=== PATIENT | female | born 1930 | race Caucasian/White ===

== ENCOUNTER 2016-12-08 09:33 | Inpatient (IN) | payer MEDICARE, OTHER ==
[~2016-12-08] VITALS: Ht 154.9 cm; Wt 44.0 kg
--- NOTE | ~2016-12-08 | CON ---
PATIENT'S NAME: PALMER MAURICE [facility] AGE: 86 Y [address] ROOM: [id number] [place], [place] [address] [facility] ADMIT DATE: 12/08/2016 Consultation DISCHARGE DATE: FAMILY PHYSICIAN: MIKE ARECHIGA MD ATTENDING PHYSICIAN: Kristian Joiner DATE OF CONSULTATION: 12/09/2016 REFERRING PHYSICIAN: TATA NAVARRO MD REFERRING PHYSICIAN: Romeo Campa MD REASON FOR CONSULTATION: ESRD, management of hemodialysis, and acute respiratory failure. CHIEF COMPLAINT: Shortness of breath. HISTORY OF PRESENT ILLNESS: An 86-year-old female with history of hypertension; coronary artery disease; end-stage renal disease, on hemodialysis; atrial fibrillation; inflammatory bowel disease; and pulmonary hypertension, admitted for right arm Acuseal graft placement. After the graft placement, the patient's oxygen saturation was low although the surgery went quite uneventfully. The patient was placed on supplemental oxygen at least 1 L/minute, and Nephrology consultation has been called for possible pulmonary vascular congestion in a patient with ESRD. We saw the patient, during the hemodialysis session. The patient generally goes to [facility] on Monday, Monday, and Monday schedule for routine hemodialysis. The patient is noted to be on her dry weight. However, she is needing about 1 to 2 L of oxygen to maintain a saturation in the low 90s. We try to challenge her during dialysis. She did tolerate it well other than maintaining a marginal blood pressure in the 90s to 100s over 40s to 50s during that time, however, no significant hypotensive episodes other than that. At the end of the dialysis session, the patient was off oxygen. Plan to continue dialysis as per Monday, Monday, and Monday schedule. Pulmonary has seen the patient. She denied any cough, any sputum production, or wheezing. Denied any history of asthma/COPD or pulmonary fibrosis. Never been on home oxygen in the past. No complaint of chest pain, palpitation, or abdominal pain. No fever, chills, or rigor. PAST MEDICAL HISTORY: 1. Hypertension. 2. Coronary artery disease. 3. End-stage renal disease, on hemodialysis. 4. Anemia of chronic disease. 5. Pulmonary hypertension. 6. Atrial fibrillation. 7. Inflammatory bowel disease. ALLERGIES: STATIN. MEDICATIONS: As per the chart.PATIENT'S NAME: PALMER MAURICE [facility] AGE: 86 Y [address] ROOM: [id number] [place], [place] [address] [facility] ADMIT DATE: 12/08/2016 Consultation DISCHARGE DATE: FAMILY PHYSICIAN: MIKE ARECHIGA MD ATTENDING PHYSICIAN: Kristian Joiner SOCIAL HISTORY: Denies alcohol, tobacco, or illicit drug use. PAST SURGICAL HISTORY: 1. Bilateral cataract surgeries. 2. Kidney transplantation. 3. Left total knee arthroplasty. 4. Placement of Acuseal graft on the right upper arm. FAMILY HISTORY: Mother had history of heart disease. Father in a motor vehicle accident. A sister of kidney disease. Brother had diabetes and heart disease. REVIEW OF SYSTEMS: GENERAL: No fever. No chills or rigor. HEENT: No sore throat. No sinus congestion. CVS: No chest pain. No palpitation or orthopnea. No leg swelling. No exertional shortness of breath. RESPIRATORY: Mild shortness of breath requiring 1 to 2 L of oxygen at rest to maintain saturation in the low 90s. No cough. No wheezing. No sputum production. GENITOURINARY: No pain with urination. No increased frequency. No nocturia. GASTROINTESTINAL: No abdominal pain. No abdominal distention. No nausea or vomiting. NEUROLOGIC: No weakness. No seizures. SKIN: No rash. No itching. ALLERGIES: No seasonal allergy. No hayfever. ENDOCRINE: No heat intolerance. No cold intolerance. PSYCHIATRIC: No sadness. No crying spells. No history of panic attack. PHYSICAL EXAMINATION: VITAL SIGNS: Blood pressure 90s to 100s over 40s to 50s, oxygen saturation 92 to 94% on 1 L of oxygen, temperature 98.2, heart rate 70, and respiratory rate 22. GENERAL: Not in apparent distress. HEAD: Moist mucous membranes. Bilateral PERRLA, EOMI. NECK: No JVD, thyromegaly or lymphadenopathy. CVS: S1 and S2 plus, irregular rate and rhythm. No murmur, rub, gallop. CHEST: Bilateral air entry equal. Faint bilateral bibasilar crackles. No significant wheeze. No rales. ABDOMEN: Soft, nontender, nondistended. Bowel sounds present. EXTREMITIES: No cyanosis, clubbing, jaundice. No dependent edema. MUSCULOSKELETAL: No limitation of range of motion. SKIN: No pallor, cyanosis, icterus. BUSINESS TEST ANALYST: Alert and oriented x3. No gross findings. LABORATORY DATA AND IMAGING STUDIES: Laboratory Evaluation: WBC 3.4, hemoglobin 11.7, hematocrit 38.2, and platelets 75,000. Chemistry; sodium 141, potassium 4.6, chloride 106, bicarbonate 25, BUN 23, creatinine 3.3, albumin 3, and total protein 6.4. LFTs are within normal limits except mildly elevated alkaline phosphatase at 140. Echocardiogram from last year; severe pulmonary hypertension with RV systolic pressure in the 60s. PATIENT'S NAME: PALMER MAURICE [facility] AGE: 86 Y [address] ROOM: [id number] [place] [id number] LOCATION: [facility] ADMIT DATE: 12/08/2016 Consultation DISCHARGE DATE: FAMILY PHYSICIAN: MIKE ARECHIGA MD ATTENDING PHYSICIAN: Kristian Joiner ASSESSMENT AND PLAN: 1. End-stage renal disease, status post failed transplant, currently on hemodialysis in center at [facility] as per Monday, Monday, and Monday schedule. We will continue dialysis as per the same schedule. The patient had a recent Acuseal graft placement on the right upper arm. We used that graft during our hemodialysis without any complications. 2. The patient has been seen and examined on dialysis, tolerating dialysis well. The patient is currently at dry weight, however, the patient has mild bibasilar crackles with history of pulmonary hypertension. We will try to challenge her to dry her out a little bit, however, aggressive ultrafiltration will be limited by marginal blood pressure. 3. Acute hypoxic respiratory failure likely to general anesthesia with possible superimposed pulmonary edema in a patient with significant pulmonary hypertension. However, the patient is at dry weight. We will try to dry her out further with some fluid challenge during dialysis and see whether we can take her off the oxygen. 4. Status post right arm Acuseal graft placement for end-stage renal disease. The graft is functioning well without any complication. We could run through the graft. 5. Pulmonary hypertension. Severe secondary to possible end-stage renal disease. Pulmonary is on board and they will follow. 6. Atrial fibrillation, although currently still in atrial fibrillation, but the rate is controlled. Thank you for allowing me to participate in this patient's care. We will closely monitor the patient's progress along with you. MD DAVIDA ARMSTRONG/akbar /[id number] d: 12/10/16 1346 t: 12/15/16 1144, CONSULTATION REPORT
--- NOTE | ~2016-12-08 | OR ---
PATIENT'S NAME: PALMER MAURICE [facility] AGE: 86 Y [address] ROOM: [address] [address] LOCATION: GPCU ADMIT DATE: 12/08/2016 OR/Procedure Report DISCHARGE DATE: FAMILY PHYSICIAN: MIKE ARECHIGA MD ATTENDING PHYSICIAN: ROMEO CAMPA SURGEON: Romeo Campa MD HONEY PROCESSOR: DATE OF PROCEDURE: 12/08/2016 PREOPERATIVE DIAGNOSIS: End-stage renal disease. POSTOPERATIVE DIAGNOSIS: End-stage renal disease. PROCEDURE: Right arm Acuseal brachioaxillary graft. INSULATION PACKER: JOVANNY Zamudio. ANESTHESIA: General. ESTIMATED BLOOD LOSS: 50 mL. OPERATIVE FINDINGS: Good thrill and bruit in the axillary vein. COMPLICATIONS: The patient had severe skin tears of the forearm during prepping of the case as her skin was extremely fragile. DESCRIPTION OF PROCEDURE: The patient was brought into operating room, placed supine on the operative table. Prepped and draped in a sterile manner. Preoperative time-out was performed. The patient was placed under general anesthesia. The patient received preoperative antibiotics. We made a standard incision 2 cm proximal to the antecubital fossa, dissected down the fascia, incised the fascia in a longitudinal manner. Dissected out the brachial artery in a 360-degree fashion. We then did the same thing for the axillary vein. We then tunneled the Acuseal 4.7 graft from the axillary incision to the brachial incision. We then gave 5000 units of heparin. We then made an arteriotomy, size of 4 mm in the artery, did a standard 6-0 Prolene anastomosis and did the same thing with the venotomy in the axillary incision, once again with 6-0 Prolene. We then removed the clamps. There was excellent flow in the graft. There was a strong bruit signal in the axillary vein. We reversed the heparin with use of protamine. Thrombin was used locally as well as Surgicel. Deep layers were closed with Vicryl, skin was closed with interrupted nylon sutures. During prepping, as I said before, she developed skin tears of the forearm, 2 large skin tears, 5-cm each limb. These were repaired using interrupted nylon and her skin would tear, however, even with the nylons, but we reapproximated the skin as best as we can. We PATIENT'S NAME: PALMER MAURICE [facility] AGE: 86 Y [address] ROOM: [place] [address] LOCATION: GPCU ADMIT DATE: 12/08/2016 OR/Procedure Report DISCHARGE DATE: FAMILY PHYSICIAN: MIKE ARECHIGA MD ATTENDING PHYSICIAN: ROMEO CAMPA will start her on antibiotics for a week to make sure to these incisions do not get infected. She was transferred to recovery room and allowed to go home later that day. MD ALEKSANDR THOMAS/akbar /[id number] d: 12/08/162100 t: 12/09/16 1011, OPERATIVE SUMMARY
--- NOTE | ~2016-12-08 | CON ---
PATIENT'S NAME: PALMER MAURICE [facility] AGE: 86 Y [address] ROOM: [address] [address] LOCATION: GPCU ADMIT DATE: 12/08/2016 Consultation DISCHARGE DATE: FAMILY PHYSICIAN: MIKE ARECHIGA MD ATTENDING PHYSICIAN: ROMEO CAMPA DATE OF CONSULTATION: 12/08/2016 REFERRING PHYSICIAN: Romeo Campa MD REASON FOR CONSULTATION: Evaluation and management of a patient with acute respiratory failure. CHIEF COMPLAINT: Shortness of breath after AV graft placement. HISTORY OF PRESENT ILLNESS: This is an 86-year-old female with multiple comorbidities including end-stage renal disease, atrial fibrillation, pulmonary hypertension, and coronary artery disease who had a right arm Accuseal graft placed earlier today by her vascular surgeon, Dr. Campa. The surgery went uneventfully, but it was noted that after surgery the patient's oxygen saturations were low. For this reason, she was started on supplemental oxygen and has been kept on at least 1 L/minute as her oxygen saturations were in the mid to low 80s while on room air. Although the patient was supposed to go home after surgery, it was decided that she will be kept for observation overnight. At the same time, I was called by the vascular surgery team to come and evaluate the patient for her acute respiratory failure with hypoxia. During the time of my examination, the patient was drowsy, but still arousable with verbal stimuli. She had endorsed some shortness of breath at the time of my examination, but otherwise no cough. No sputum production. No wheezing. She denies ever being diagnosed with asthma, COPD, or pulmonary fibrosis. She was never placed on supplemental oxygen for long periods of time. Her dialysis sessions are on Monday, Monday, and Monday, so her next dialysis session is scheduled for tomorrow. She also denies chest pain, palpitations, abdominal pain, lower extremity swelling, fevers, or chills. PAST MEDICAL HISTORY: 1. Coronary artery disease. 2. Anemia of chronic disease. 3. Pulmonary hypertension. 4. End-stage renal disease, on hemodialysis. 5. Atrial fibrillation. 6. Inflammatory bowel disease. 7. Systemic hypertension. PATIENT'S NAME: [facility] AGE: 86 Y [address] ROOM: [facility] [place], [place] [address] [facility] ADMIT DATE: 12/08/2016 Consultation DISCHARGE DATE: FAMILY PHYSICIAN: MIKE ARECHIGA MD ATTENDING PHYSICIAN: ROMEO CAMPA ALLERGIES: STATINS. MEDICATIONS: At home are reviewed, as per chart. SOCIAL HISTORY: There is no history of alcohol, tobacco, or illicit drug abuse. FAMILY HISTORY: Her mother had heart disease. Her father was killed in a motor vehicle accident. A sister of kidney disease, and a brother had diabetes and heart disease. PAST SURGICAL HISTORY: 1. Bilateral cataract surgeries. 2. Kidney transplantation. 3. Left total knee arthroplasty. REVIEW OF SYSTEMS: Pertinent positives and negatives as per History of Present Illness. The patient also has chronic complaints of decreased vision, multiple joint pains, and dyspnea on exertion. Otherwise, a 12-point review of systems was performed and was negative. PHYSICAL EXAMINATION: VITAL SIGNS: Temperature is 98.2, heart rate is 70, respiratory rate is 22, blood pressure is 131/102, and oxygen saturation 93% on 1 L/minute oxygen. Weight 44.1 kg, height 5 feet 1 inches, and BMI is 18.3. GENERAL: She is an elderly, female; sitting up in bed; in no acute distress. Drowsy, but arousable. Speaking in short sentences. HEENT: Atraumatic head. Changes consistent with cataract surgery noted in both eyes. Anicteric sclerae. Moist oral mucosa. No pharyngeal erythema. No oral thrush. NECK: Supple. No JVD. No LAD. Trachea midline. No thyromegaly. RESPIRATORY: She has bilateral basilar crackles. No wheezing. CARDIOVASCULAR: Irregularly irregular rhythm and rate with a 3/6 systolic murmur heard along the left lower sternal border. ABDOMEN: Soft, nontender, and nondistended. Bowel sounds are present. EXTREMITIES: She has minimal bilateral lower extremity edema. No cyanosis, and no clubbing. NEUROLOGICAL: Drowsy, but arousable. Moving all extremities. LABORATORY AND DIAGNOSTIC DATA: Prior to surgery, her WBC was 3.4, hemoglobin of 11.7, hematocrit of 38.2, and platelets of 75. Sodium of 141, potassium of 4.6, chloride of 106, total PATIENT'S NAME: PALMER MAURICE [facility] AGE: 86 Y [address] ROOM: [facility] [place], [place] [address] LOCATION: GPCU ADMIT DATE: 12/08/2016 Consultation DISCHARGE DATE: FAMILY PHYSICIAN: MIKE ARECHIGA MD ATTENDING PHYSICIAN: ROMEO CAMPA serum bicarbonate of 25, BUN of 23, and creatinine of 3.3. Albumin of 3. Total protein of 6.4. LFTs were within normal limits except a mildly elevated alkaline phosphatase of 140. I also personally reviewed the medical records from Dr. Campa's office. Cardiac echo from last year revealed severe pulmonary hypertension with estimated RVSP in the 60s. ASSESSMENT: 1. Acute hypoxic respiratory failure. This is most likely due to general anesthesia with possibly superimposed pulmonary edema in a patient with pulmonary hypertension. I am concerned about hypercapnia because of hypoventilation after general anesthesia. 2. Status post right arm Accuseal graft for end-stage renal disease. 3. Pulmonary hypertension, this is severe and most likely secondary to end- stage renal disease. 4. End-stage renal disease. She is on hemodialysis. PLAN: 1. I will check an ABG and a chest x-ray. 2. We will titrate FiO2 as tolerated to keep oxygen saturations above 90%. In the meantime, if she has increased shortness of breath, work of breathing, or high oxygen requirements, then she may benefit from BiPAP as needed. 3. I do not see a need for hemodialysis emergently, but she will most likely need it tomorrow to help with the pulmonary edema due to fluid overload. She will be evaluated by the nephrology team. The current assessment and plan was discussed with the patient, the patient's family, and vascular surgery team. I would like to thank you, Dr. Campa, for giving me the opportunity to participate in this patient's care. MD IMTIAZ LIAO/akbar /[id number] d: 12/09/16 1137 t: 03/10/17 1413, CONSULTATION REPORT
--- NOTE | ~2016-12-08 | DS ---
PATIENT'S NAME: PALMER MAURICE [facility] AGE: 86 Y [address] ROOM: [address] [address] LOCATION: GPCU ADMIT DATE: 12/10/2016 Discharge Summary DISCHARGE DATE: 12/20/2016 FAMILY PHYSICIAN: Janiya Thomas MD ATTENDING PHYSICIAN: Fiorella Joiner PRIMARY DIAGNOSES: 1. Acute hypoxic respiratory failure. 2. Acute on chronic cor pulmonale. 3. Severe pulmonary hypertension. 4. Dysphagia. 5. Hypoglycemia. 6. Severe protein calorie malnutrition. 7. End-stage renal disease, on hemodialysis. 8. Status post AV graft placement by Dr. Campa on 12/10/2016. 9. Essential hypertension. 10. Coronary artery disease. 11. Paroxysmal atrial fibrillation, not on long-term anticoagulation. 12. Severe aortic stenosis. OPERATIONS AND PROCEDURES: Flexible sigmoidoscopy was performed on 12/14/[address] Huber. Colonoscopy with polypectomy and clip placement was performed on 12/15/[address] Huber. Echocardiogram was performed 12/13/2016 demonstrating an ejection fraction of 70%-75%, moderate diastolic dysfunction, severe aortic stenosis, and an elevated RVSP at 95 mmHg. Thoracentesis was performed on 12/20/2016 with resultant 700 mL of fluid drained. HISTORY OF PRESENTING ILLNESS/REASON FOR ADMISSION: Please see the original H and P dictated on 12/10/2016. HOSPITAL COURSE: The patient was admitted to the hospital as noted above following AV graft placement by Dr. Campa with postoperative hypoxia and hypercapnia. Pulmonology had been consulted and the hospitalist service was consulted to assist in medical management and further evaluation. Her clinical progress was slow. She was felt to have fluid overload. She was taken for hemodialysis and ultrafiltration was performed carefully. Oxygen requirements persisted, however. Eventually Cardiology was consulted. An echocardiogram was performed. This showed severe aortic stenosis. She also had significant pulmonary hypertension with an RVSP noted at 95 mmHg. It was suggested that ultimately she might benefit from balloon aortic valvuloplasty and transcatheter aortic valve replacement, and this was discussed with the patient. It is felt that she would be relatively high risk given her frail medical status. PATIENT'S NAME: PALMER MAURICE [facility] AGE: 86 Y [address] ROOM: [facility] [place], [place] [address] LOCATION: GPCU ADMIT DATE: 12/10/2016 Discharge Summary DISCHARGE DATE: 12/20/2016 FAMILY PHYSICIAN: Janiya Thomas MD ATTENDING PHYSICIAN: Fiorella Joiner Eventually, oxygen requirements improved. She did undergo thoracentesis for bilateral pleural effusions. By 12/20/2016, her oxygen demands were essentially nil. The patient did have significant anorexia and dysphagia. She is evaluated by Speech Therapy. There was no evidence for any aspiration. SSRI therapy with mirtazapine was added and her oral intake gradually improved. She had severe protein calorie malnutrition. Because of her frail status, physical therapy and occupational therapy were provided as well. It is felt that she would be high risk for discharge to home and plans for half-way care were made. Unfortunately, we could not find any placement for her easily. Eventually, her son requested to just take her home where he would care for her and take her to her dialysis appointments. By 12/20/2016, it was felt that this would be reasonable course and it was recommended that she maintain close clinical followup with her primary care provider as well as outpatient followup with Nephrology. DISCHARGE INSTRUCTIONS: DIET: Renal prudent as tolerated. ACTIVITY: As tolerated. MEDICATIONS: 1. Vitamin C 500 mg p.o. three times a week. 2. PhosLo 667 p.o. t.i.d. 3. Cinacalcet 30 mg p.o. at bedtime. 4. Digoxin 125 mcg p.o. twice a week. 5. Colace 100 mg p.o. b.i.d. 6. Levothyroxine 75 mcg p.o. daily. 7. Midodrine 10 mg p.o. every Monday, Monday, Monday. 8. Mirtazapine 7.5 mg p.o. at bedtime. 9. Fish oil daily. 10. Protonix 40 mg p.o. q.a.m. 11. Vitamin B6 25 mg p.o. q.a.m. 12. Garlic 400 mg p.o. at bedtime. FOLLOWUP: She will follow up with her primary care provider, Dr. Thomas in 5-7 days in [place]. She will follow up with Nephrology for hemodialysis at the Dialysis Unit in [place] tomorrow, 12/22/2015. CONDITION ON DISCHARGE: Fair. TOTAL TIME SPENT ON DISCHARGE PROCESS: 45 minutes. PATIENT'S NAME: PALMER MAURICE [facility] AGE: 86 Y [address] ROOM: [address] [address] LOCATION: GPCU ADMIT DATE: 12/10/2016 Discharge Summary DISCHARGE DATE: 12/20/2016 FAMILY PHYSICIAN: Janiya Thomas MD ATTENDING PHYSICIAN: Fiorella Joiner FIORELLA JOINER MD AJMarco/modl /[id number] d: 12/21/163 t: 12/22/16 1532, DISCHARGE SUMMARY
--- NOTE | ~2016-12-08 | CON ---
PATIENT'S NAME: PALMER HERNANDEZ [facility] AGE: 86 Y [address] ROOM: [place] [address] LOCATION: GPCU ADMIT DATE: 12/10/2016 Consultation DISCHARGE DATE: FAMILY PHYSICIAN: MIKE ARECHIGA MD ATTENDING PHYSICIAN: Kristian Joiner REFERRING PHYSICIAN: TATA NAVARRO MD REASON FOR CONSULT: Rectal bleed. HISTORY OF PRESENT ILLNESS: Palmer Hernandez is an 86-year-old female with multiple comorbidities. 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 She also has underlying history of hypertension, coronary artery disease, diffuse vascular disease, atrial fibrillation, and questionable history of inflammatory bowel disease. She states she has been having rectal bleeding off and on for several months and has undergone evaluation in [place]. I do not have those records. Sometimes, she states there were some polyps and ongoing bleeding was ascribed to hemorrhoids. We are asked to see her in this regard. Her hemoglobin is relatively stable around 9-10, but complains of ongoing rectal bleeding during this hospitalization. PAST MEDICAL HISTORY: Kidney transplant, AV graft surgery. MEDICATIONS: Multiple as noted on NOV. ALLERGIES: ARE STATED TO STATINS. FAMILY HISTORY: Negative for inflammatory bowel disease. PHYSICAL EXAMINATION: GENERAL: Elderly, emaciated, thin-looking female, on oxygen. She is otherwise awake, alert, and oriented. HEENT: Normocephalic and atraumatic. Nonicteric sclerae. CHEST: Clear to auscultation. HEART: S1, S2 normal. ABDOMEN: Soft and nondistended without palpable masses. EXTREMITIES: No edema. SKIN: Evidence of fistula in the left arm. NEUROLOGIC: Awake, alert, and appropriate without any focal deficits. PATIENT'S NAME: PALMER HERNANDEZ [facility] AGE: 86 Y [address] ROOM: [address] [address] LOCATION: GPCU ADMIT DATE: 12/10/2016 Consultation DISCHARGE DATE: FAMILY PHYSICIAN: MIKE ARECHIGA MD ATTENDING PHYSICIAN: Kristian Joiner LABORATORY DATA: Labs are reviewed showing hemoglobin of 10.2 which is stable since after admission, white cell count 4.6, platelets 75,000, and MCV of 114,000. ASSESSMENT AND PLAN: An 86-year-old female with multiple comorbidities and complaints of bright red blood per rectum, etiology unclear. Apparently some kind of evaluation has been undertaken in her hometown, but she is unaware of that. She is agreeable to a flexible sigmoidoscopy with further management as per the findings of this exam. Thank you for this consult. MARU COLBERT MD AM/akbar /[id number] d: 12/13/162200 t: 12/16/16 1451, CONSULTATION REPORT
--- NOTE | ~2016-12-08 | CON ---
PATIENT'S NAME: PALMER [facility] AGE: 86 Y [address] ROOM: [place] [address] LOCATION: GPCU ADMIT DATE: 12/10/2016 Consultation DISCHARGE DATE: FAMILY PHYSICIAN: MIKE ARECHIGA MD ATTENDING PHYSICIAN: Kristian Joiner DATE OF CONSULTATION: 12/13/2016 REFERRING PHYSICIAN: TATA NAVARRO MD CARDIOLOGY CONSULTATION REASON FOR CARDIOLOGY CONSULTATION: Congestive heart failure exacerbation. HISTORY OF PRESENT ILLNESS: This is an 86-year-old female, who initially presented for outpatient AV fistula creation by Vascular Surgery due to end-stage renal disease. She did end up developing some acute respiratory failure due to fluid overload, postsurgically and is currently in the progressive care unit under the care of the Hospitalist Service, Pulmonary, and Nephrology. This consult was requested due to her history of diastolic congestive heart failure and her recent fluid overload exacerbation. Also of note, she has had some noted GI as well as bleeding, and she has had consults placed to further evaluate those. Also of note, she did undergo a thoracentesis to the right side which had 800 mL off due to pleural effusion. At the time of this consult, she is resting comfortably on 2 L nasal cannula. No complaints of chest pain suggestive of acute coronary syndrome. She also denies palpitations or syncope. She denies nausea, vomiting, diarrhea, or fever. PAST MEDICAL HISTORY: 1. Chronic diastolic congestive heart failure. 2. Hypertension. 3. Coronary artery disease. 4. End-stage renal disease, on hemodialysis. 5. Chronic atrial fibrillation. 6. Pulmonary hypertension. 7. Inflammatory bowel disease. PAST SURGICAL HISTORY: 1. Currently status post an AV fistula creation by Vascular Surgery. 2. Kidney transplant. 3. Bilateral cataract surgery. 4. Left total knee arthroplasty. FAMILY HISTORY: PATIENT'S NAME: [facility] AGE: 86 Y [address] ROOM: [place] [address] LOCATION: GPCU ADMIT DATE: 12/10/2016 Consultation DISCHARGE DATE: FAMILY PHYSICIAN: MIKE ARECHIGA MD ATTENDING PHYSICIAN: Kristian Joiner The patient's mother had a positive history of heart disease. Her father due to a car accident, and she had a sister that due to history of renal disease. She has one brother with a history of diabetes and heart disease. SOCIAL HISTORY: The patient denies tobacco use. She also denies alcohol or illicit drug use. CURRENT MEDICATIONS: 1. Protonix 40 mg IV twice daily. 2. Colace 100 mg p.o. twice daily. 3. Fish oil 1000 mg p.o. daily. 4. Digoxin 125 mcg p.o. 2 times a week on Monday and Monday. 5. Levaquin 250 mg p.o. every 48 hours. 6. Levothyroxine 75 mcg p.o. daily. 7. PhosLo 667 mg p.o. 3 times daily. 8. Remeron 7.5 mg p.o. daily in the evening. 9. Sensipar 30 mg p.o. daily in the evening. 10. Vitamin B6, 25 mg p.o. daily. 11. Vitamin C 500 mg p.o. 3 times daily. MEDICATION ALLERGIES: Statin causing inability to walk. REVIEW OF SYSTEMS: Pertinent positive review of systems are listed in the HPI. All other review of systems are evaluated and negative. LABORATORY DATA AND IMAGING STUDIES: Diagnostics: The patient underwent an echocardiogram, which shows an estimated left ventricular ejection fraction of 70 to 75%. There was a mildly dilated right ventricle with mildly reduced right ventricular function. The left and right atrium were moderately dilated. There was bzqc-so-foxynlos mitral regurgitation and severe aortic stenosis with a peak velocity of 4.64 m/s and a mean gradient of 44 mmHg, and a valve area of 0.57 sq cm, and a stroke volume index of 31.93 mL/m2. There is severe tricuspid regurgitation and severe pulmonary hypertension with an RVSP of 95 mmHg. There is a small circumferential pericardial effusion and also a pleural effusion present. PHYSICAL EXAMINATION: VITAL SIGNS: Temperature 97.9, pulse 84, respirations 18, blood pressure 141/90, and O2 saturation is 100% on 2 L nasal cannula. The patient weighs 45.8 kg. SKIN: [place], warm, and dry. He does appear quite fragile though with noted skin tears. PATIENT'S NAME: PALMER [facility] AGE: 86 Y [address] ROOM: [place] [address] [facility] ADMIT DATE: 12/10/2016 Consultation DISCHARGE DATE: FAMILY PHYSICIAN: MIKE ARECHIGA MD ATTENDING PHYSICIAN: Kristian Joiner ENT: Oral mucosa is pink and moist. No jugular venous distention. No carotid bruits. CHEST: Respirations are even and unlabored. Lung sounds show bibasilar crackles as well as some generalized coarseness. HEART: Irregular rate and rhythm. Does have the presence of a 3/6 systolic murmur. ABDOMEN: Soft and nontender. MUSCULOSKELETAL: Equal muscle strength in the upper and lower extremities bilaterally against resistance. EXTREMITIES: Peripheral pulses palpable. No clubbing, cyanosis, or edema. PSYCHIATRIC: Alert and oriented. Mood and affect are appropriate. IMPRESSION AND PLAN: Per Dr. Marinelli: 1. Severe aortic stenosis. 2. Diastolic congestive heart failure. 3. Severe pulmonary hypertension. This patient may ultimately benefit from a balloon aortic valvuloplasty and eventually a transcatheter aortic-valve replacement procedure. There are no noted complication factors including her fragility and advanced age as well as her end-stage renal disease, and current genitourinary and gastrointestinal bleeding complications. We will continue to monitor, evaluate, and treat as appropriate. Thank you for this consult. Thank you for allowing [facility] to interact in the care of this patient. DARLENE SCHMID APRN FOR [facility]/akbar /[id number] d: 12/14/16 0014 t: 12/22/16 1431, CONSULTATION REPORT
--- NOTE | ~2016-12-08 | ECHO ---
Transthoracic Echocardiography Report (TTE) Demographics Patient Name PALMER MAURICE Date of Study 12/13/2016 Patient Number [id number] Visit Number [id number] Date of 1930 Room Number G6332 Accession Number [id number] Gender Female Age 86 year(s) Referring Marisel Cobb MD Bar And Filler Assembler Sarah Crystal Physician William Posadas RDCS, RVT Physician Interpreting Yves Martinez Digital Imager Physician Elie JACOB Supervising Ordering Physician Francine Rock MD, MD/MLP Nurse Stress Travel Clerk Conclusions Contractility Score Summary Hyperdynamic Left Ventricular contractility was noted. Summary The estimated left ventricular ejection fraction is 70-75%. The left ventricle is normal in size . Moderate concentric left ventricular hypertrophy. Diastolic function indeterminate due to patient's arrhythmia, probably restrictive physiology There is a mid cavity obstruction in the left ventricle with an increased velocity of 1.74 cm/s. Mildly reduced right ventricular function. Mildly dilated right ventricle. The left atrium is moderately dilated. The right atrium is moderately to severely dilated. IVC measures 1.77 cm without inspiratory collapse. Mild mitral annular calcification. Mild-moderate mitral regurgitation by color Doppler. There is SEVERE AORTIC STENOSIS by the Continuity Equation. The peak velocity is 4.64 m/s, the mean gradient is 44 mmHg, and the valve area based on the continuity equation is .57 cm2, stroke volume index is 31.93 ml/m2. Severe tricuspid regurgitation by color Doppler. There is severe pulmonary hypertension. The pulmonary pressure (RVSP) is 95 mmHg. Small circumferential pericardial effusion. Pleural effusion present. Procedure Type of Study TTE procedure:2D Echocardiogram, M-Mode, Doppler , Color Doppler. Procedure Date Date: 12/13/2016 Start: 07:13 AM Study Location: Inpatient Portable Technical Quality: Adequate visualization Indications:Atrial fibrillation and Congestive heart failure. Appropriate Use Criteria: 9 Patient Status: Routine Rhythm: Atrial fibrillation HR: 112 bpm BP: 110/57 mmHg Allergies - Other:(Niacin, Ethylalcohol, Erythromycin, Simvastatin, Clonidine, Atorvastatin, Ezetimibe, Rosuvastain). M-Mode/2D Measurements LV Diastolic Dimension: 2.98 cm LV Systolic Dimension: 2.13 cm LV Septum Diastolic: 1.48 cm LV PW Diastolic: 1.18 cm AO Root Dimension: 2.7 cm Cardiac Output: 5.04 l/min LA Dimension: 3.4 cm Post Pericard Effusion: 0.5 cm LVOT: 1.8 cm LVOT VTI: 17.7 cm RV Base: 3.85 cm LV Stroke volume: 45.02 ml RV Length: 5.47 cm TAPSE: 1.21 cm TDI-S': 18 cm/s Doppler Measurements AV Peak Velocity: 4.64 m/s MV Peak E-Wave: 1.16 m/s AV Peak Gradient: 86.12 mmHg AV Mean Gradient: 44 mmHg MV P1/2t: 47 msec LVOT Peak Velocity: 0.94 m/s TR Velocity:4.66 m/s PV Peak Velocity: 0.05 m/s TR Gradient:86.86 mmHg PV Peak Gradient: 0.01 mmHg Estimated RAP:8 mmHg Estimated PASP: 94.86 mmHg Estimated RVSP: 95 mmHg E' Septal Velocity: 0.09 m/s E' Lateral Velocity: 0.09 m/s Findings Left Ventricle The left ventricle is normal in size . Moderate concentric left ventricular hypertrophy. Diastolic function indeterminate due to patient's arrhythmia. There is a mid cavity obstruction in the left ventricle with an increased velocity of 1.74 cm/s. Right Ventricle Mildly reduced right ventricular function. Mildly dilated right ventricle. Left Atrium The left atrium is moderately dilated. Right Atrium The right atrium is moderately to severely dilated. IVC measures 1.77 cm without inspiratory collapse. Mitral Valve Mild mitral annular calcification. Mild-moderate mitral regurgitation by color Doppler. Aortic Valve There is severe aortic stenosis by the Continuity Equation. The peak velocity is 4.64 m/s, the mean gradient is 44 mmHg, and the valve area based on the continuity equation is .57 cm2, stroke volume index is 31.93 ml/m2. Tricuspid Valve Severe tricuspid regurgitation by color Doppler. There is severe pulmonary hypertension. The pulmonary pressure (RVSP) is 95 mmHg. Pulmonic Valve Normal pulmonic valve structure and function. Pericardial Effusion Small circumferential pericardial effusion. Miscellaneous Visualized portions of the aortic root and ascending aorta appear normal in size. Pleural Effusion Pleural effusion present. Contractility Score LV regional wall motion:(0-Non visualized 1-Normal 2-Hypokinesis 3-Akinesis 4-Dyskinesis 5-Aneurysm) Signature dtt: Bianca Marinelli dtd: 12/13/16 0713 Physician Self Edit
--- NOTE | ~2016-12-08 | CON ---
PATIENT'S NAME: [facility] AGE: 86 Y [address] ROOM: [place] [address] LOCATION: GPCU ADMIT DATE: 12/08/2016 Consultation DISCHARGE DATE: FAMILY PHYSICIAN: MIKE ARECHIGA MD ATTENDING PHYSICIAN: JP MONROE DATE OF CONSULTATION: 12/08/2016 CHIEF COMPLAINT: AV graft placement. REASON FOR CONSULTATION: Medical management. HISTORY OF PRESENT ILLNESS: An 86-year-old lady with a past medical history significant for end-stage renal disease, on chronic hemodialysis; history of coronary artery disease; anemia of chronic kidney disease; atrial fibrillation; and hypertension, was admitted under Vascular Surgery for elective placement of right AV graft placement. Postoperatively, she did have some dyspnea and low saturations. She was transferred to the PCU for observation overnight. On my encounter, she was sleeping and woke up to the vocal stimuli. She denied having any shortness of breath at this point. She did endorse having minimal cough. She denied having any chest pain, any palpitations, any abdominal pain, any extremity swelling. On further inquiry, she denied having any constipation and any diarrhea. REVIEW OF SYSTEMS: All other systems were reviewed and were negative, except what is mentioned in the HPI. PAST MEDICAL HISTORY: Significant for coronary artery disease, anemia of chronic disease, end-stage renal disease, atrial fibrillation, pulmonary hypertension, systemic hypertension, and inflammatory bowel disease. ALLERGIES: THE PATIENT IS ALLERGIC TO STATINS. MEDICATIONS: Please see MAR. SOCIAL HISTORY: Denied alcohol or tobacco abuse. PATIENT'S NAME: [facility] AGE: 86 Y [address] ROOM: [place] [address] LOCATION: GPCU ADMIT DATE: 12/08/2016 Consultation DISCHARGE DATE: FAMILY PHYSICIAN: MIKE ARECHIGA MD ATTENDING PHYSICIAN: JP MONROE FAMILY HISTORY: Family history was reviewed and was negative for coronary artery disease. PHYSICAL EXAMINATION: VITAL SIGNS: 120/52, 16, 58, 97.4, and on 1 L of oxygen saturating 92%. GENERAL: In no acute distress, alert and oriented x3. HEENT: Head atraumatic, normocephalic. Eyes are nonicteric. No pallor. Oropharynx: Moist mucous membrane. CARDIOVASCULAR: S1, loud S2. Systolic ejection murmur at the aortic region radiating to the carotids. LUNGS: Scattered rhonchi noted. No expiratory wheezes or crackles noted. ABDOMEN: Soft, nontender, and nondistended. Bowel sounds are present. EXTREMITIES: No clubbing, cyanosis, or edema. SKIN: Multiple bruises noted. VASCULAR: AV fistula on the left side noted. Right-sided AV graft placement Forrest wrapped. PSYCHIATRIC: Normal affect, mood, and speech. NEUROLOGIC: Cranial nerves 2 through 12 intact. No motor or sensory deficit. LABORATORY DATA: Lab work done in the hospital today includes a venous ABG which showed pH of 7.31, pCO2 of 54, pO2 of 55. White count 3.4, hemoglobin of 11.7, and platelets of 75. Creatinine 3.3, BUN 23, potassium 4.6, chloride 106, bicarb of 27, calcium of 8.4. Chest x-ray was done, which did show cardiomegaly with pulmonary edema. ASSESSMENT: 1. Acute hypoxic respiratory failure. 2. Acute hypercarbic respiratory failure. 3. Heart failure with acute exacerbation, unknown ejection fraction. 4. End-stage renal disease, on hemodialysis. 5. Pulmonary hypertension. 6. Systemic hypertension. PLAN: The patient's hypoxia appears to be from volume overload, and she will need dialysis in the morning. Supplemental oxygen and p.r.n. BiPAP to relieve shortness of breath. Continue the home medications. We will hold the Cardizem at this point because she appears to be bradycardic with the heart rate at 55. DVT prophylaxis per Vascular Surgery. We will follow along. The patient wished to be DNR and DNI. Thank you for allowing us in taking care of this patient. PATIENT'S NAME: PALMER MAURICE [facility] AGE: 86 Y [address] ROOM: [address] [address] [facility] ADMIT DATE: 12/08/2016 Consultation DISCHARGE DATE: FAMILY PHYSICIAN: MIKE ARECHIGA MD ATTENDING PHYSICIAN: JP MONROE BHAVIN STRINGER MD SADE/modl /[id number] d: 12/09/1621 t: 12/09/16 022, CONSULTATION REPORT
[~2016-12-08 09:33] MED LIST: ASCORBIC ACID500 MG PO; CARDIZEM CD)(T180 MG PO; CARDIZEM CD240 MG PO; COLACE100 MG PO; FISH OIL 1,2001 EACH PO; GARLIC1 EAC1 PO; GARLIC400 MG PO; LANOXIN (DIGI250 MCG PO; NORCO 5-325 MG1 TAB PO; PHOSLO667 M1 PO; PROTONIX40 MG PO; SENSIPAR 30 MG30 MG PO; SYNTHROID50 MCG PO; VITAMIN B-625 MG PO; ZESTRIL2.5 MG PO
[2016-12-08 11:04] LABS: BASOPHIL % 0.9 %; EOSINOPHIL # 0.1 K/uL (0.0-0.5); EOSINOPHIL % 3.9 %; HEMATOCRIT 38.2 % (30.0-46.0); HEMOGLOBIN 11.7 g/dL (10.0-15.0); IMMATURE GRANULOCYTE % 0.3 %; LYMPHOCYTE # 0.7 K/uL (0.8-4.0); LYMPHOCYTE % 21.1 %; MCH 36.1 pg (27.0-34.0); MCHC 30.6 gm/dL (32.0-36.5); MCV 117.9 fl (83.0-98.0); MONOCYTE # 0.4 K/uL (0.0-1.0); MONOCYTE % 12.8 %; MPV 10.7 fl (9.4-12.4); NEUTROPHIL # (ANC) 2.1 K/uL (1.8-7.8); NRBC % 0 /100WBC (0-0.00); PLATELET COUNT 75 K/uL (150-450); RBC 3.24 M/uL (3.00-5.00); RDW-CV 17.2 % (11.9-14.6); WBC 3.4 K/uL (4.0-11.0)
[2016-12-08 11:15] LABS: CALCIUM 8.4 mg/dL (8.5-10.5); CREATININE 3.3 mg/dL (0.5-1.1); TOTAL BILIRUBIN 0.3 mg/dL (0.0-1.5); TOTAL PROTEIN 6.4 g/dL (6.0-8.4)
[2016-12-08 11:18] LABS: ANION GAP 14.6 (10.0-19.0); POTASSIUM 4.6 mMol/L (3.7-5.1)
[2016-12-08] MEDS ORDERED: NORCO 5-325 TA1 EACH PO (15:26)
[2016-12-08] MEDS ORDERED: LEVAQUIN500 MG PO (15:27)
[2016-12-08 20:36] LABS: BICARBONATE 27.2 mmol/L (18.0-23.0); PCO2 54 mmHg (35-45); PO2 55 mmHg (80-90)
--- NOTE | 2016-12-09 04:15 | NUR ---
Significant Event: A/0X3. [place]. RESTED IN BED ALL OF SHIFT. TURNED SELF. AFEBRILE. VSS ON 1L. DENIES PAIN. IV TO L) FOOT SL. FISTULA TO L) FA. CAN HEAR THE BRUIT AND FEEL THE THRILL.DRESSING TO R) ARM C/D/I. 0 OUTPUT. DIALYSIS THIS AM. NO BM. Follow up: CONTINUE WITH PLAN OF CARE.
[2016-12-09 05:25] LABS: BASOPHIL # 0.1 K/uL (0.0-0.2); EOSINOPHIL # 0.1 K/uL (0.0-0.5); HEMATOCRIT 35.4 % (30.0-46.0); HEMOGLOBIN 10.7 g/dL (10.0-15.0); IMMATURE GRANULOCYTE % 0.4 %; LYMPHOCYTE # 0.7 K/uL (0.8-4.0); LYMPHOCYTE % 14.9 %; MCH 36.5 pg (27.0-34.0); MCHC 30.2 gm/dL (32.0-36.5); MCV 120.8 fl (83.0-98.0); MONOCYTE # 0.5 K/uL (0.0-1.0); MONOCYTE % 10.8 %; MPV 11.2 fl (9.4-12.4); NEUTROPHIL # (ANC) 3.5 K/uL (1.8-7.8); NEUTROPHIL % 70.9 %; NRBC % 0.4 /100WBC (0-0.00); PLATELET COUNT 63 K/uL (150-450); RBC 2.93 M/uL (3.00-5.00); RDW-CV 17.3 % (11.9-14.6); WBC 4.9 K/uL (4.0-11.0)
--- NOTE | 2016-12-09 17:07 | NUR ---
Significant Event: ALERT. [place]. DIALYSIS TODAY. WAS BROUGHT BACK TO PCU FROM DIALYSIS WITHOUT 02. SATS 84%. REPLACED 02 AT 1 LPM, AND SLOWLY RECOVERED TO 94%. PATIENT PHYSICALLY DIDN'T LOOK IF SHE WAS IN RESP. DISTRESS. Follow up: CONT. TO MONITER RESP. STATUS.
[2016-12-10 03:28] LABS: BASOPHIL % 0.6 %; EOSINOPHIL # 0.2 K/uL (0.0-0.5); EOSINOPHIL % 3.7 %; HEMATOCRIT 33.7 % (30.0-46.0); HEMOGLOBIN 10.3 g/dL (10.0-15.0); IMMATURE GRANULOCYTE % 0.2 %; LYMPHOCYTE # 0.5 K/uL (0.8-4.0); LYMPHOCYTE % 11.6 %; MCH 35.6 pg (27.0-34.0); MCHC 30.6 gm/dL (32.0-36.5); MCV 116.6 fl (83.0-98.0); MONOCYTE # 0.6 K/uL (0.0-1.0); MONOCYTE % 12.5 %; NEUTROPHIL # (ANC) 3.3 K/uL (1.8-7.8); NEUTROPHIL % 71.4 %; NRBC % 0 /100WBC (0-0.00); RBC 2.89 M/uL (3.00-5.00); RDW-CV 16.6 % (11.9-14.6); WBC 4.6 K/uL (4.0-11.0)
[2016-12-10 03:37] LABS: PLATELET COUNT 51 K/uL (150-450)
[2016-12-10 04:04] LABS: ALBUMIN 2.6 gm/dL (3.5-5.0); CALCIUM 7.8 mg/dL (8.5-10.5); CREATININE 3.2 mg/dL (0.5-1.1); PHOSPHORUS 3.4 mg/dL (2.5-4.9); POTASSIUM 4.3 mMol/L (3.7-5.1)
[2016-12-10 04:11] LABS: ANION GAP 15.3 (10.0-19.0)
--- NOTE | 2016-12-10 04:38 | NUR ---
Significant Event: Patient is alert/oriented x3, forgetful at times. Vital signs are stable. Right arm accuseal graft covered with dressing, old bloody drainage present. Good bruit and thrill. Left arm has old fistula with good bruit and thrill. BP's taken in right lower leg. MD order for lab draws from feet. Creatinine this AM is 3.1, GFR 14, sodium high at 150. Blood sugars have ran low, accuchecks q.6hr. Blood glucose was 77 on AM labs. Continues to be on 1L O2. Anuric. Follow up: Patient will need to go home on O2.
--- NOTE | 2016-12-10 14:41 | NUR ---
Significant Event: Alert & oriented. VSS, afebrile, continues to be on 1 L O2, sats drop to low 80's on room air. Dressings removed from right upper arm, dressing changed to right forearm, CDI. BP from R) lower leg. IV to L) foot, flushes well. Poor oral intake. Takes pills whole without difficulties. Follow up: MBS and mechanical soft diet recommended by speech therapy
--- NOTE | 2016-12-11 04:21 | NUR ---
Patient A/Ox3. VSS on 2L while awake Cpap at HS. Up one assist with walker. Lungs clear/diminished. Bowel sounds present. Voiding well, hemauria is clearing. No complaints. IV x2 Rt arm saline locked. Bilateral lower extremities are dark purple/dry, mitesh wrap with aloe during days and off at HS. Needs placement, POA states patient is taking care of self at home.
--- NOTE | 2016-12-11 04:26 | NUR ---
Patient A/Ox3. [place]. VSS on 1L O2 unable to wheen off. One assist with gaitbelt, bedside commode. Lung slightly course at times. Bowel sounds present, passing gas but no BM. Fistulas both have bruit/thrill. Rt upper arm is the new one used in diaylsis. Graft rt lower arm covered, may change dressing daily/prn. Rt arm large bruise. BP to Rt lower leg. No complaints. ACCU checks Q6hrs. BS 80-90 last night, jello/sprite given. Patient doesn't have a appetite.
[2016-12-11 05:35] LABS: BASOPHIL % 0.4 %; EOSINOPHIL # 0.2 K/uL (0.0-0.5); EOSINOPHIL % 3.5 %; HEMATOCRIT 34.3 % (30.0-46.0); IMMATURE GRANULOCYTE % 0.4 %; LYMPHOCYTE # 0.7 K/uL (0.8-4.0); LYMPHOCYTE % 13.9 %; MCH 36.7 pg (27.0-34.0); MCHC 32.1 gm/dL (32.0-36.5); MCV 114.3 fl (83.0-98.0); MONOCYTE # 0.6 K/uL (0.0-1.0); MONOCYTE % 12.3 %; MPV 11.6 fl (9.4-12.4); NEUTROPHIL # (ANC) 3.6 K/uL (1.8-7.8); NEUTROPHIL % 69.5 %; NRBC % 0 /100WBC (0-0.00); RDW-CV 16.3 % (11.9-14.6); WBC 5.1 K/uL (4.0-11.0)
[2016-12-11 05:36] LABS: PLATELET COUNT 62 K/uL (150-450)
[2016-12-11 05:48] LABS: ALBUMIN 2.7 gm/dL (3.5-5.0); ALK PHOS 125 IU/L (33-138); CALCIUM 8.3 mg/dL (8.5-10.5); CHLORIDE 98 mMol/L (96-110); CO2 24 mMol/L (22-32); TOTAL BILIRUBIN 0.3 mg/dL (0.0-1.5)
[2016-12-11 05:52] LABS: ALT < 10 IU/L (12-78); ANION GAP 17.8 (10.0-19.0); AST 35 IU/L (10-40); BLOOD UREA NITROGEN 33 mg/dL (6-24); CREATININE 4.2 mg/dL (0.5-1.1); ESTIMATED GFR (MDRD EQUATION) 10; SODIUM 135 mMol/L (135-145)
[2016-12-11 05:53] LABS: POTASSIUM 4.8 mMol/L (3.7-5.1)
--- NOTE | 2016-12-11 13:47 | NUR ---
Significant Event: Alert & oriented, [place], drowsy. VSS, afebrile, on 1 L O2. Working with PT/OT/ST. Eating few bites of each meal but entire Ensure. Accuchek Q6 hours. Dressing change to R) forearm daily. Follow up: MBS Monday and dialysis Monday.
[2016-12-11 23:00] LABS: HEMATOCRIT 35.2 % (30.0-46.0); HEMOGLOBIN 11.2 g/dL (10.0-15.0)
--- NOTE | 2016-12-12 04:50 | NUR ---
Patient A/Ox3. [place]. VSS on 1L. Up one assist with cane. Lungs slightly course in bases. Bowel sounds present, mod bloody stool, HBG checked 11.2. No complaints. ACCU checks q6hrs. IV to Rt foot. BP take on rt leg. MBS test this am. Diaylsis this afternoon. Patient still having difficulty eating.
[2016-12-12 05:40] LABS: BASOPHIL % 0.3 %; EOSINOPHIL # 0.3 K/uL (0.0-0.5); EOSINOPHIL % 4.4 %; HEMATOCRIT 34.8 % (30.0-46.0); HEMOGLOBIN 11.3 g/dL (10.0-15.0); IMMATURE GRANULOCYTE # 0.1 K/uL (0.0-0.3); LYMPHOCYTE % 16.4 %; MCH 36.3 pg (27.0-34.0); MCHC 32.5 gm/dL (32.0-36.5); MCV 111.9 fl (83.0-98.0); MONOCYTE # 0.7 K/uL (0.0-1.0); MONOCYTE % 11.1 %; MPV 11.6 fl (9.4-12.4); NEUTROPHIL % 66.8 %; NRBC % 0 /100WBC (0-0.00); RBC 3.11 M/uL (3.00-5.00); RDW-CV 15.9 % (11.9-14.6); WBC 5.9 K/uL (4.0-11.0)
[2016-12-12 05:48] LABS: PLATELET COUNT 57 K/uL (150-450)
--- NOTE | 2016-12-12 15:57 | NUR ---
A&O-1PA. HTN 160'S-180'S. HR AFIB CHRONIC 100'S. 1L02. AFEBRILE. LS CLEAR/DIM. BS ACTIVE. NO VOIDS. NO BM. PHONG FISTULA SUTURES OPEN TO AIR, RLA GAUZE AND PETROLEUM GAUZE. DIALYSIS TODAY 2.5L OFF MWF. [place]. MBS,CT TODAY. NO LABS OR BP'S TO BILAT ARMS. ACCUCH Q6H.
[2016-12-12 18:14] LABS: HEMATOCRIT 32.6 % (30.0-46.0); HEMOGLOBIN 10.3 g/dL (10.0-15.0)
[2016-12-12 18:22] LABS: PROTIME 10.7 SECONDS (9.6-11.1)
[2016-12-13 00:16] LABS: HEMATOCRIT 31.7 % (30.0-46.0); HEMOGLOBIN 10.2 g/dL (10.0-15.0)
--- NOTE | 2016-12-13 04:26 | NUR ---
Patient A/Ox3. [place]. VSS on 1L. Hematest x2 (-), one left to collect. Lung slight course in bases. Had a bloody nose, humidity add to oxygen. Bowel sounds present. Ate better for dinner. IV to Lt foot. No complaints. GI to see today.
[2016-12-13 06:29] LABS: BASOPHIL % 0.8 %; EOSINOPHIL # 0.2 K/uL (0.0-0.5); EOSINOPHIL % 3.7 %; HEMATOCRIT 29.9 % (30.0-46.0); HEMOGLOBIN 9.5 g/dL (10.0-15.0); IMMATURE GRANULOCYTE % 0.2 %; LYMPHOCYTE # 0.6 K/uL (0.8-4.0); LYMPHOCYTE % 12.5 %; MCH 36.3 pg (27.0-34.0); MCHC 31.8 gm/dL (32.0-36.5); MCV 114.1 fl (83.0-98.0); MONOCYTE # 0.6 K/uL (0.0-1.0); MONOCYTE % 11.7 %; MPV 11.2 fl (9.4-12.4); NEUTROPHIL # (ANC) 3.5 K/uL (1.8-7.8); NEUTROPHIL % 71.1 %; NRBC % 0 /100WBC (0-0.00); RBC 2.62 M/uL (3.00-5.00); RDW-CV 15.9 % (11.9-14.6); WBC 4.9 K/uL (4.0-11.0)
[2016-12-13 06:31] LABS: PLATELET COUNT 75 K/uL (150-450)
--- NOTE | 2016-12-13 11:22 | NUR ---
A-NUTRITION F/U 12/12: MBS AND CT. PASSED MBS. THORACENTESIS PLANNED FOR TODAY. DIALYSIS MWF. (+)BS; (+)BM LABS: NA 135, K+ 4.8, LGU 86, BUN 33, ADMINISTRATIVE DIETITIAN 4.2, ALB 2.7 MEDS: REMERON, PROTONIX DIET RX: CARDIAC W/ENSURE ENLIVE TID. PO INTAKE HAS BEEN BITES UP TO LAST NIGHT. PT HAD 25-50% OF HER DINNER. TAKING ENSURE ENLIVE WELL. EST NUTR NEEDS: [id number] KCALS AND 57-67 GM PROTEIN D-AT NUTRITION RISK W/UNDERWEIGHT R/T CATABOLIC DZ PROCESS AEB ESRD W/DIALYSIS, BMI 18.3 I-CONTINUE W/ENSURE ENLIVE TID M/E-GOAL: PO INTAKE >/=50% BY NEXT F/U 1)F/U PO INTAKE, SUPPLEMENT, AND POC IN 3-5 DAYS 2)ASSIST NEEDED
--- NOTE | 2016-12-13 15:14 | NUR ---
A&O- 1PA. VSS. 2L02. LS COARSE. ANURIA. NO BM TODAY NEED HEMO TEST X1. DIALYSIS MWF. VAGINAL BLEEDING GYNO CONSULT. GI BLEED. NEEDS BALOONED. DSG TO R FA DAILY/PRN DSG CHANGES. NO BPS ON BUE. LAB TO FOOT PER RN. BILAT PLURAL EFFUSIONS. THORACENTISIS TODAY 800ML OFF OF RIGHT. WILL NEED TREND OX. Q6H ACCUCH.
[2016-12-13 16:20] LABS: HEMATOCRIT 32.1 % (30.0-46.0); HEMOGLOBIN 10.2 g/dL (10.0-15.0)
--- NOTE | 2016-12-14 04:01 | NUR ---
Significant Event: Patient A/Ox3 but forgetful and a bit confused at times. VSS. Oxygen titrated from 2L to room air. Patient remains in the high 90s. No complaints of pain this shift. Up 1-assist with cane and gait belt. Follow Up: Risks and benefits need to be completed for sigmoidoscopy so that permits can be signed.
[2016-12-14 04:44] LABS: BASOPHIL # 0.1 K/uL (0.0-0.2); BASOPHIL % 0.8 %; EOSINOPHIL # 0.1 K/uL (0.0-0.5); EOSINOPHIL % 1.7 %; HEMATOCRIT 30.8 % (30.0-46.0); IMMATURE GRANULOCYTE # 0.1 K/uL (0.0-0.3); LYMPHOCYTE # 0.9 K/uL (0.8-4.0); LYMPHOCYTE % 15.3 %; MCH 36.1 pg (27.0-34.0); MCHC 32.5 gm/dL (32.0-36.5); MCV 111.2 fl (83.0-98.0); MONOCYTE # 0.5 K/uL (0.0-1.0); MONOCYTE % 8.6 %; MPV 11.8 fl (9.4-12.4); NEUTROPHIL # (ANC) 4.3 K/uL (1.8-7.8); NEUTROPHIL % 72.6 %; NRBC % 0 /100WBC (0-0.00); PLATELET COUNT 69 K/uL (150-450); RBC 2.77 M/uL (3.00-5.00); RDW-CV 15.8 % (11.9-14.6); WBC 5.9 K/uL (4.0-11.0)
[2016-12-14 04:56] LABS: CALCIUM 8.9 mg/dL (8.5-10.5)
[2016-12-14 04:57] LABS: ANION GAP 18.3 (10.0-19.0); CREATININE 4.2 mg/dL (0.5-1.1); POTASSIUM 6.3 mMol/L (3.7-5.1)
--- NOTE | 2016-12-14 14:30 | NUR ---
Have attempted several times today to meet with patient. Patient has been off the unit for dialysis and now in endo. Per demographics patient lives alone in [place]. Per nursing staff patient will need skilled care. Will follow.
--- NOTE | 2016-12-14 17:04 | NUR ---
Significant Event:Patient is A/Ox3, follows all commands. Uses call light appropritaly. Afib with HR 70-90's SBP 120-140's. SBPO2 >95% currently at 1LNC. Lungs asculated slightly coarse throughout. C/O SOB with activity. Active bowel sounds. Unable to finish scope today, plan to rescope tommorrow. additional Fleets enema given once back to floor and started on golytely. Clear liquid diet. NPO after midnoc. Small BM x1 today, last hematest done. Up with 1 assist and walker. Accuchecks q6h, no SSI, 70-66, extrose given in pacu x1. Denies pain. Follow up: Colonscopy tomorrow.Plan also for thoracentesis via radiology. Continue to monitor blood sugars.
[2016-12-15 03:52] LABS: BASOPHIL % 0.8 %; EOSINOPHIL # 0.2 K/uL (0.0-0.5); EOSINOPHIL % 6.2 %; HEMATOCRIT 28.6 % (30.0-46.0); HEMOGLOBIN 9.3 g/dL (10.0-15.0); LYMPHOCYTE # 0.6 K/uL (0.8-4.0); LYMPHOCYTE % 16.5 %; MCH 35.9 pg (27.0-34.0); MCHC 32.5 gm/dL (32.0-36.5); MCV 110.4 fl (83.0-98.0); MONOCYTE # 0.6 K/uL (0.0-1.0); MONOCYTE % 14.1 %; MPV 10.8 fl (9.4-12.4); NEUTROPHIL # (ANC) 2.4 K/uL (1.8-7.8); NEUTROPHIL % 61.4 %; NRBC % 0 /100WBC (0-0.00); PLATELET COUNT 75 K/uL (150-450); RBC 2.59 M/uL (3.00-5.00); RDW-CV 15.8 % (11.9-14.6); WBC 3.9 K/uL (4.0-11.0)
--- NOTE | 2016-12-15 04:13 | NUR ---
Significant Event: Patient A/Ox3. VSS on RA. Patient has had many bloody stools this shift with the golytely prep. stools are maroon, liquid with some lumps. Up 1-assist with gait belt and cane. Currently drinking second batch of golytely. IV to left foot flushes, no blood return. Hgb this AM is 9.3 down from 10.0 yesterday. Luca Hernandez (son?) would like a call from care management today regarding plans for placement. Follow up: Colonoscopy and L) thoracentesis scheduled for today.
--- NOTE | 2016-12-15 08:54 | NUR ---
D:Patient is up in chair. Is continuing with Bowel prep. Last stool all liquid. No formed stool noted. Still highly colored, brown to pavithra. P:Colonoscopy
--- NOTE | 2016-12-15 12:13 | NUR ---
Call to [facility] to see what time Wendy had dialysis at so we could work on placement at a SNF for her when she was ready for discharge. Talked with RN Lazara, , she tells me that Wendy dialysis on MWF at 1215, she runs for 3 hours 15 minutes and is usually all done by 1600 on those days. I plan on going to visit with Wendy later today to discuss discharge plans and see which facilities she might be interested in upon discharge. Will continue to follow and assist.
[2016-12-15 15:51] LABS: HEMATOCRIT 25.9 % (30.0-46.0); HEMOGLOBIN 8.3 g/dL (10.0-15.0); MCH 35.8 pg (27.0-34.0); MCV 111.6 fl (83.0-98.0); MPV 10.9 fl (9.4-12.4); PLATELET COUNT 78 K/uL (150-450); RBC 2.32 M/uL (3.00-5.00); RDW-CV 15.6 % (11.9-14.6); WBC 4.7 K/uL (4.0-11.0)
[2016-12-15 16:12] LABS: ABSOLUTE NEUTROPHIL CT (ANC) 3.8 K/uL (1.8-7.8); LYMPHOCYTE # 0.4 K/uL (0.8-4.0); LYMPHOCYTE % 9 %; MONOCYTE # 0.3 K/uL (0.0-1.0); SEGMENTED NEUTROPHIL # 3.8 K/uL (1.8-7.8); SEGMENTED NEUTROPHIL % 80 %
[2016-12-15 16:13] LABS: ALBUMIN 2.4 gm/dL (3.5-5.0); CALCIUM 7.7 mg/dL (8.5-10.5)
[2016-12-15 16:15] LABS: TOTAL BILIRUBIN 0.4 mg/dL (0.0-1.5)
--- NOTE | 2016-12-15 17:53 | NUR ---
Significant Event:Patient had colonscopy done to day, did find an ulcer, it was epi'd and clipped. Was taken to Radiology to do a pul. tap, but SBP in the 80's for them. Patient to floor with SBP in the 70 -80's. Did get fluid bolus and IVF started at 70 ml/hr. SBP in the 100-110's now. No c/o pain. Accucheck at 1100-74, at 1700-81. Follow up:Dialysis tomorrow? and Tap Left lung-1300.
--- NOTE | 2016-12-15 18:46 | NUR ---
D:Report called from PACU at 1420. Patient had an ulcer, that was epi'd and clipped. They did have to put the patient on alittle Faizan to get BP up. Then patient went to Radiology. SBP in the 90's, but at Radiology SBP in then 80's. Patient brought to floor. Dr. Escamilla aware. See vital sign print off. Patient responded well to 500 ml Fluid bolus and NS continues at 70 ml/hr. Dr. Escamilla talked with son, and with patient. Patient is a DNR/DNI. P:Monitor BP, monitor Hgb
[2016-12-15 22:33] LABS: HEMATOCRIT 27.4 % (30.0-46.0); HEMOGLOBIN 8.8 g/dL (10.0-15.0)
--- NOTE | 2016-12-16 05:03 | NUR ---
Significant Event:A/Ox3 but forgetful at times. VSS on 2L/NC. Oxygen weaned to RA then placed on 2L/NC per RT due to new home oxygen order. Ate a small supper and has rested well all night. No BM or voids noted. Drsg changed to R)lower FA. Fistula to R)upper FA +T/B. PIV to L)foot infusing NS @ 70 ml/h with no complications. Follow up:Plan is for HD today.
[2016-12-16 06:06] LABS: BASOPHIL % 0.8 %; EOSINOPHIL # 0.3 K/uL (0.0-0.5); EOSINOPHIL % 6.9 %; HEMATOCRIT 27.4 % (30.0-46.0); HEMOGLOBIN 8.7 g/dL (10.0-15.0); LYMPHOCYTE # 0.6 K/uL (0.8-4.0); LYMPHOCYTE % 15.1 %; MCH 35.8 pg (27.0-34.0); MCHC 31.8 gm/dL (32.0-36.5); MCV 112.8 fl (83.0-98.0); MONOCYTE # 0.6 K/uL (0.0-1.0); MONOCYTE % 15.4 %; NEUTROPHIL # (ANC) 2.3 K/uL (1.8-7.8); NEUTROPHIL % 61.8 %; NRBC % 0 /100WBC (0-0.00); PLATELET COUNT 87 K/uL (150-450); RBC 2.43 M/uL (3.00-5.00); RDW-CV 15.6 % (11.9-14.6); WBC 3.6 K/uL (4.0-11.0)
[2016-12-16 06:28] LABS: ANION GAP 16.5 (10.0-19.0); CALCIUM 8.3 mg/dL (8.5-10.5); CREATININE 3.5 mg/dL (0.5-1.1); POTASSIUM 4.5 mMol/L (3.7-5.1)
--- NOTE | 2016-12-16 14:01 | NUR ---
Stopped by to talk with Wendy about discharge plans. She was out of her room when I came by, will attempt to go and see again today to visit with her. Will continue to follow and assist.
--- NOTE | 2016-12-16 14:10 | NUR ---
A-NUTRITION F/U 12/15 COLONOSCOPY; ULCER EPI'S AND CLIPPED. ON 2L O2 VIA NC. DIALYSIS MWF LABS: NA 139, K+ 4.5, GLU 80, BUN 38, INDEXER 3.5, ALB 2.4 MEDS: PROTONIX, VENOFER, EPOGEN DIET RX: REGULAR. PO INTAKE HAS IMPROVED SINCE COLONOSCOPY AND ULCER TREATED. PO INTAKE HAS BEEN 50-100%. PO INTAKE PRIOR TO PROCEDURE WAS POOR. RECEIVED ENSURE ENLIVE TID. EST NUTR NEEDS: [id number] KCALS AND 57-67 GM PROTEIN D-AT NUTRITION RISK W/UNDERWEIGHT R/T CATABOLIC DZ PROCESS AEB ESRD W/DIALYSIS, BMI 18.3 I-CONTINUE W/ENSURE ENLIVE TID ENCOURAGE GOOD PO INTAKE M/E-GOAL: PO INTAKE >/=50% FOR DURATION OF ADMIT 1)F/U PO INTAKE, SUPPLEMENT, AND POC IN 3-5 DAYS 2)ASSIST NEEDED
--- NOTE | 2016-12-16 14:14 | NUR ---
D:Patient left for dialysis at 0800 per wheelchair. Returned at 1230 per wheelchair. Did get report called at 1215. Dialysis removed 1.5 L. Last BP 106/63. Patient tolerated well. At 1245, patient left for Radiology for left throancentesis per bed. At 1315, Patient returned to room per bed. VSS. Remains on 2L O2. Removed 500 ml from left chest. Has tegaderm to site. They did chest x-ray in radiology. Patient eating lunch in bed. No c/o pain except at fistula site, ice pack applied per patient request.
--- NOTE | 2016-12-16 16:55 | NUR ---
Significant Event:Patient went to dialysis today, they took off 1.5L. Tolerated well. Went to Radiology and had left thorancentesis. They took 500 ml off.Remains on O2 at 2L. Has tegaderm to back at thorancentesis site. Appetite fair. Follow up:Continue to monitor SBP and monitor resp status
--- NOTE | 2016-12-17 05:14 | NUR ---
Significant Event: A/0 X 3. AMBULATES 1 ASSIST. SBP'S 1'TEENS TO 140'S, REMAINS IN A-FIB HR IN THE 90'S TO LOW 100'S. AFEBRILE. 02 TITRATED TO 1L WITH SATS IN THE MID/UPPPER 90'S, RA FAILED. CRACKLES REMAIN IN BILATERAL BASES. BOWELS REMAIN HYPOACTIVE. RIGHT ARM DRESSING HAS BECOME SATURATED BUT HAS NOT OOZED, HAVE LEFT OPEN AND MARKED LOWER ARM TO ASSESS EDEMA, MARKED AREA 27.5 CM. BLOOD PRESSURES ARE TAKEN ON RIGHT ANKLE AND IV LINE ON LEFT FOOT. DENIED ALL PAIN, NO PAIN MEDS GIVEN. HAS SLEPT WELL ALL EVENING. Follow up:
[2016-12-17 08:18] LABS: BASOPHIL % 0.4 %; EOSINOPHIL # 0.3 K/uL (0.0-0.5); EOSINOPHIL % 5.8 %; HEMOGLOBIN 8.1 g/dL (10.0-15.0); IMMATURE GRANULOCYTE % 0.4 %; LYMPHOCYTE # 0.7 K/uL (0.8-4.0); MCH 35.8 pg (27.0-34.0); MCHC 31.2 gm/dL (32.0-36.5); MONOCYTE # 0.6 K/uL (0.0-1.0); MONOCYTE % 13.6 %; MPV 10.1 fl (9.4-12.4); NEUTROPHIL % 65.8 %; NRBC % 0 /100WBC (0-0.00); PLATELET COUNT 87 K/uL (150-450); RBC 2.26 M/uL (3.00-5.00); RDW-CV 15.8 % (11.9-14.6); WBC 4.6 K/uL (4.0-11.0)
[2016-12-17 08:37] LABS: ANION GAP 14.7 (10.0-19.0); CALCIUM 8.5 mg/dL (8.5-10.5); CREATININE 2.8 mg/dL (0.5-1.1); POTASSIUM 4.7 mMol/L (3.7-5.1)
--- NOTE | 2016-12-17 15:59 | NUR ---
Significant Event: Patient A/O x 3. Up with 1A. VSS on 1L. Attempted to wean to room air multiple times today due to O2 sats being >96% on 1L, but repeatedly drops to 82-89% without O2. Lungs with crackles to left base. R)upper arm fistula and L)lower arm fistula with bruit/thrill present. No changes to dressing on lower right arm graft site. Ice packs placed to R)upper arm to reduce swelling today. L)foot PIV SL with no complications. To take BP on R)ankle. Accu checks q6h. Poor PO intake. Encouraging patient to drink at least her ensure. Follow up: Continue as per plan of care. Monitor right arm fistula. Continue to attempt to wean RA. Encourage PO intake.
[2016-12-18 03:33] LABS: BASOPHIL % 0.6 %; EOSINOPHIL # 0.3 K/uL (0.0-0.5); EOSINOPHIL % 6.1 %; HEMATOCRIT 27.2 % (30.0-46.0); HEMOGLOBIN 8.4 g/dL (10.0-15.0); IMMATURE GRANULOCYTE % 0.6 %; LYMPHOCYTE # 0.8 K/uL (0.8-4.0); LYMPHOCYTE % 17.3 %; MCH 36.2 pg (27.0-34.0); MCHC 30.9 gm/dL (32.0-36.5); MCV 117.2 fl (83.0-98.0); MONOCYTE # 0.7 K/uL (0.0-1.0); MPV 10.8 fl (9.4-12.4); NEUTROPHIL # (ANC) 2.9 K/uL (1.8-7.8); NEUTROPHIL % 60.4 %; NRBC % 0 /100WBC (0-0.00); PLATELET COUNT 85 K/uL (150-450); RBC 2.32 M/uL (3.00-5.00); RDW-CV 15.7 % (11.9-14.6); WBC 4.8 K/uL (4.0-11.0)
--- NOTE | 2016-12-18 04:52 | NUR ---
Significant Event: A/0 X 3, REMAINS IN AFIB RATES 80'S 1'TEENS. STILL ON 1L 02 FAILED TO WEEN OFF. ALL OTHER VSS, AFEBRILE. APPETITE REMAINS POOR ONLY TOLERATED 1 ENSURE DURING SHIFT. CRACKLES REMIAN IN LEFT BASE. RIGHT ARM DRESSING HAS NO CHANGES. APPLYING ICE PACKS TO ARM NEEDED. NO COMPLAINTS OF PAIN NO PAIN MEDS GIVEN. Follow up:
[2016-12-18 11:22] LABS: ALBUMIN 2.8 gm/dL (3.5-5.0); ANION GAP 16.4 (10.0-19.0); CALCIUM 8.9 mg/dL (8.5-10.5); PHOSPHORUS 2.6 mg/dL (2.5-4.9); POTASSIUM 5.4 mMol/L (3.7-5.1)
--- NOTE | 2016-12-18 17:36 | NUR ---
Significant Event: PT. A/OX3, VSS ON 2L PER NC. NO COMPLAINTS OF PAIN TODAY. RIGHT ARM GRAFT SITE DRESSING CHANGED TODAY X2, SCANT AMT OF SEROUS DRAINAGE TO DRESSING, SUTURES INTACT & TO BE REMOVED BEFORE DISMISSAL ON 12/20. R)UPPER ARM & L)ARM FISTULAS HAVE BRUIT/THRILL. ICE PACK PRN TO R)ARM. PT. GETS UP 1 ASSIST TO CHAIR & BATHROOM. PT. WENT TO DIALYSIS THIS AFTERNOON AT 1315, WILL GO AGAIN IN AM. PT. ATE 40% OF BREAKFAST & DRANK 2 ENSURES TODAY. 1100 ACCUCHECK WAS 132. XSM MATHEUS BM THIS AM. SLIV TO L)FOOT. Follow up: CONTINUE WITH POC.
--- NOTE | 2016-12-19 04:34 | NUR ---
Significant Event: A/0 X 3, AMBULTES 1 ASSIST. VSS ON 1L 02. SHE GOT BACK FROM DIALYSIS AROUND 1800 AND HAS BEEN VERY TIRED SINCE THAT TIME. SHE WENT TO BED EARLY AROUND 1930 AND HAS SLEPT ALL EVENING. HAS WOKEN UP TWICE AND DANGLED AT BEDSIDE FOR A SHORT PERIOD OF TIME. STILL HAS POOR PO INTAKE. NEED TO ENCOURAGE INTAKE DESPITE POOR APPETITE. Follow up: DISCHARGE MONDAY TO [facility], [facility] TO BE TAKEN OUT DAY OF DISCHARGE.
[2016-12-19 04:50] LABS: BASOPHIL % 0.5 %; EOSINOPHIL # 0.3 K/uL (0.0-0.5); EOSINOPHIL % 6.8 %; HEMATOCRIT 24.5 % (30.0-46.0); IMMATURE GRANULOCYTE % 0.5 %; LYMPHOCYTE # 0.6 K/uL (0.8-4.0); LYMPHOCYTE % 15.2 %; MCH 35.8 pg (27.0-34.0); MCV 115.6 fl (83.0-98.0); MONOCYTE # 0.6 K/uL (0.0-1.0); MONOCYTE % 14.4 %; MPV 10.8 fl (9.4-12.4); NEUTROPHIL # (ANC) 2.6 K/uL (1.8-7.8); NEUTROPHIL % 62.6 %; NRBC % 0 /100WBC (0-0.00); PLATELET COUNT 89 K/uL (150-450); RBC 2.12 M/uL (3.00-5.00); RDW-CV 15.7 % (11.9-14.6); WBC 4.1 K/uL (4.0-11.0)
[2016-12-19 04:52] LABS: HEMOGLOBIN 7.6 g/dL (10.0-15.0)
[2016-12-19 05:12] LABS: ALBUMIN 3.4 gm/dL (3.5-5.0); ANION GAP 14.5 (10.0-19.0); CALCIUM 8.4 mg/dL (8.5-10.5); CREATININE 2.2 mg/dL (0.5-1.1); PHOSPHORUS 2.3 mg/dL (2.5-4.9); POTASSIUM 4.5 mMol/L (3.7-5.1)
--- NOTE | 2016-12-19 13:04 | NUR ---
Call to both [facility] and [facility] in [place]. Talked with Emily at [facility], she was reviewing the referral and then was going to call me back. Talked with Karla at [facility], she to was reviewing the referral and then was going to call be back if they could accept. Will continue to follow and assist.
--- NOTE | 2016-12-19 16:23 | NUR ---
Significant event: Alert, Oriented x3. Afib, rates 80-100's. Weaned to RA. Dialysis today 1.6 Liters off. 1+ tibial edema. Lung sounds clear/diminished in upper lobes, with fine crackles to lower lobes. 1 assist to bathroom, patient had scant amount of bloody liquid from rectum, notified LUIGI Fernando, probably old blood; watching hemoglobin, and notify GI if patient has large amounts of bloody drainage from rectum. C-xray done today. Follow Up: CM working on placement for discharge, monitor GI status.
--- NOTE | 2016-12-20 04:06 | NUR ---
Significant Event: A/0X3. RESTED IN BED ALL OF SHIFT. TURNED SELF. VSS ON 1L. PATIENTS SATS DROPPED TO 84% WHILE PATIENT WAS SLEEPING. 1L OF 02 WAS APPLIED AND PATIENT IS MID TO HIGH 90'S ON 1L. DENIES PAIN. IV TO l) FOOT SL. NEW FISTULA TO R) UPPER ARM. CAN FEEL THE THRILL AND HEAR THE BRUIT. FISTULA TO L) FA ALSO. CAN FEEL THE THRILL AND HEAR THE BRUIT. CHANGED DRESSING TO R) LOWER ARM. SUTURES INTACT. ANURIA. NO BM THIS SHIFT. Follow up: CONTINUE WITH PLAN OF CARE. MONITOR HGB.
[2016-12-20 04:25] LABS: BASOPHIL # 0.1 K/uL (0.0-0.2); EOSINOPHIL # 0.3 K/uL (0.0-0.5); EOSINOPHIL % 6.7 %; HEMATOCRIT 26.5 % (30.0-46.0); HEMOGLOBIN 8.3 g/dL (10.0-15.0); IMMATURE GRANULOCYTE # 0.1 K/uL (0.0-0.3); IMMATURE GRANULOCYTE % 1.7 %; LYMPHOCYTE # 0.9 K/uL (0.8-4.0); LYMPHOCYTE % 17.7 %; MCH 35.8 pg (27.0-34.0); MCHC 31.3 gm/dL (32.0-36.5); MCV 114.2 fl (83.0-98.0); MONOCYTE # 0.8 K/uL (0.0-1.0); MONOCYTE % 17.1 %; MPV 10.2 fl (9.4-12.4); NEUTROPHIL # (ANC) 2.7 K/uL (1.8-7.8); NEUTROPHIL % 55.8 %; NRBC % 0.4 /100WBC (0-0.00); RBC 2.32 M/uL (3.00-5.00); RDW-CV 15.4 % (11.9-14.6); WBC 4.8 K/uL (4.0-11.0)
[2016-12-20 04:27] LABS: PLATELET COUNT 121 K/uL (150-450)
[2016-12-20 04:44] LABS: ALBUMIN 3.5 gm/dL (3.5-5.0); ANION GAP 13.8 (10.0-19.0); CALCIUM 8.5 mg/dL (8.5-10.5); POTASSIUM 3.8 mMol/L (3.7-5.1)
[2016-12-20 04:53] LABS: PHOSPHORUS 1.5 mg/dL (2.5-4.9)
--- NOTE | 2016-12-20 09:22 | NUR ---
A - NUTRITION F/U. GLU 75, BUN/INSURANCE CODER 22/2.0, ALB 3.5. PT ON DIALYSIS MWF. DIET: REGULAR W/ ENSURE TID W/ MEALS. INTAKE DECREASED TO BITES TO 50%. PT STATES SHE DOES NOT HAVE AN APPETITE; REPORTS DRINKING ENSURE AT EACH MEAL. D - AT RISK W/ INADEQUATE MEAL INTAKE R/T DECREASED APPETITE AEB INTAKE RECORD. I - GOAL: CONTINUED ENSURE INTAKE, 50% MEAL INTAKE. M/E - ENCOURAGED CONTINUED SUPPLEMENT INTAKE AND MEAL INTAKE. F/U IN 3-5 DAYS.
--- NOTE | 2016-12-20 12:37 | NUR ---
VMM left on my machine last night by Karla at [facility]. She states that "they are unable to meet patients needs and have to many dialysis patient there already so they won't be able to accept Wendy at this time." I phoned Emily at 0945 to see if she had had a chance to review the information with DON yet, but she states she hadn't yet but will go find her "right now" and get that done. Asked that she call back JINNY so I could continue to work on other placement options if they wouldn't be able to accept her. I phoned again at 1030, per waterfront director, Emily was busy so she would call me back in a little bit. 1200 Call from son Luca, wanting an update on Wendy and dismissal plans. Updated him to the above so he was aware. I let him know I would update him when I knew more information. 1230 Call from JUDIT Mcrae that she had talked with shereen Segovia and he stated to her that if [facility] told them no to taking Wendy upon dismissal, he would just drive up and crab picker his mom and take her home to live with him. JUDIT Mcrae tells me that she told shereen Segovia to not come until we had heard back from [facility] on acceptance or not. I let her know that I agreed with this. 1240 Made another call to Emily at [facility], verbal message was again left with the waterfront director to have her call me JINNY so I could move forward with dismissal plans for Wendy. In the meantime, I did place a F2F on the chart for [facility] when Wendy goes and asked that doctors fill it out if they are fine with her going home. I also worked with JUDIT Mcrae to ensure that the right dismissal paperwork was on the chart. Will continue to follow and assist. Waiting on a call back from [facility] to tell me if they can accept or not.
[2016-12-20] MEDS ORDERED: LEVOTHROID(SYN75 MCG PO (14:23)
[2016-12-20] MEDS ORDERED: PROAMATINE5 MG PO (14:28)
[2016-12-20] MEDS ORDERED: REMERON15 MG PO (14:35)
--- NOTE | 2016-12-20 17:32 | NUR ---
Patient dismissed to home with home health. Patient and family deny question or concern of discharge. VSS on RA. [facility] to contact patient for overnight trend ox. Sutures dc'd by Deven SPAIN, Vaseline gauze and gauze placed over sites d/t scant amount serosanguinous drainage. IV d/c'd.
== END 2016-12-20 17:25 | disposition home health service (06) | DRG 356 ==
LOC: GSDC 09:33 → GPCU 09:33 → GSDC 13:00 → GPCU 19:52 → GSDC 19:53 → GPCU 12-10 09:55
PROVIDERS: Family Medicine; Internal Medicine; Internal Medicine Critical Care Medicine; Internal Medicine Nephrology; Nurse Practitioner; ADMIT Surgery Vascular Surgery
PROC: 03170ZD Bypass Right Brachial Artery to Upper Arm Vein, Open Approach (ICD-10-PCS; principal; 2016-12-08)
PROC: 5A1D60Z (ICD-10-PCS; 2016-12-09)
PROC: 0W993ZZ Drainage of Right Pleural Cavity, Percutaneous Approach (ICD-10-PCS; 2016-12-13)
PROC: 0DJD8ZZ Inspection of Lower Intestinal Tract, Via Natural or Artificial Opening Endoscopic (ICD-10-PCS; 2016-12-14)
PROC: 0W3P8ZZ Control Bleeding in Gastrointestinal Tract, Via Natural or Artificial Opening Endoscopic (ICD-10-PCS; 2016-12-15)
PROC: 0D5G8ZZ Destruction of Left Large Intestine, Via Natural or Artificial Opening Endoscopic (ICD-10-PCS; 2016-12-15)
PROC: 0W9B3ZZ Drainage of Left Pleural Cavity, Percutaneous Approach (ICD-10-PCS; 2016-12-16)
PROC: 0W993ZZ Drainage of Right Pleural Cavity, Percutaneous Approach (ICD-10-PCS; 2016-12-20)
DX: R13.10 Dysphagia, unspecified (principal); J96.01 Acute respiratory failure with hypoxia; E43 Unspecified severe protein-calorie malnutrition; I50.33 Acute on chronic diastolic (congestive) heart failure; J90 Pleural effusion, not elsewhere classified; J96.02 Acute respiratory failure with hypercapnia; J95.89 Other postprocedural complications and disorders of respiratory system, not elsewhere classified; E87.0 Hyperosmolality and hypernatremia; N18.6 End stage renal disease; K63.3 Ulcer of intestine; D62 Acute posthemorrhagic anemia; I12.0 Hypertensive chronic kidney disease with stage 5 chronic kidney disease or end stage renal disease; T86.12 Kidney transplant failure; Z68.1 Body mass index [BMI] 19.9 or less, adult; K92.2 Gastrointestinal hemorrhage, unspecified; E16.2 Hypoglycemia, unspecified; I27.2 Other secondary pulmonary hypertension; I25.10 Atherosclerotic heart disease of native coronary artery without angina pectoris; D63.1 Anemia in chronic kidney disease; I35.0 Nonrheumatic aortic (valve) stenosis; I36.1 Nonrheumatic tricuspid (valve) insufficiency; K56.41 Fecal impaction; K63.5 Polyp of colon; R00.1 Bradycardia, unspecified; I48.2 Chronic atrial fibrillation; E03.9 Hypothyroidism, unspecified; D69.6 Thrombocytopenia, unspecified; I95.9 Hypotension, unspecified; Z66 Do not resuscitate; Y83.8 Other surgical procedures as the cause of abnormal reaction of the patient, or of later complication, without mention of misadventure at the time of the procedure
CPT/HCPCS: C1768; C9113; G0378; G8978; G8979; G8980; G8987; G8988; G8989; J0171; J0690; J1644; J1756; J2001; J2405; J2720; J7030; J7040; P9047; Q4081